=== PATIENT | female | born 1970 | race Caucasian/White ===

== ENCOUNTER 2018-06-05 06:47 | Emergency (ER) | payer MEDICAID ==
[~2018-06-05] VITALS: Ht 167.6 cm; Wt 90.7 kg
[2018-06-05 08:32] VITALS: BP 142/99
[2018-06-05] MEDS ORDERED: SODIUM CHLORIDE 0.9% 1,000 ML IVB ONE (08:42)
[2018-06-05] MEDS ORDERED: PANTOPRAZOLE 40 MG/10 ML VIAL IV ONE (08:45)
[2018-06-05 09:00] LABS: Urine Bacteria NONE SEEN /hpf (None Seen); Urine Blood 1+ /uL (Negative); Urine Mucus FEW (None Seen); Urine Specific Gravity 1.031 (1.001-1.035); Urine WBC 2 /hpf (0 - 5)
[2018-06-05 09:31] LABS: Basophils # (auto) 0.1 uL; Basophils % (auto) 1.2 % (0.0-2.0); Eosinophils # (auto) 0.1 uL; Eosinophils % (auto) 0.6 % (0.0-7.0); Hemoglobin 16.1 g/dL (12.2-16.2); Lymphocytes # (auto) 1.9 uL; Lymphocytes % (auto) 19.1 % (10.0-50.0); Mean Corpuscular Hemoglobin 32.5 pg (28.0-32.0); Mean Corpuscular Hgb Conc. 33.6 g/dL (32.0-36.0); Mean Corpuscular Volume 96.5 fL (80.0-100.0); Monocytes # (auto) 0.6 uL; Monocytes % (auto) 6.4 % (0.0-12.0); Neutrophils # (auto) 7.1 uL; Neutrophils % (auto) 72.7 % (37.0-80.0); Platelet Count (auto) 268 10^3/uL (140-450); Red Blood Cells 4.97 10^6/uL (4.0-5.20); Red Cell Distribution Width 14.2 % (11.8-14.3); White Blood Cell 9.8 10^3/uL (4.4-10.8)
[2018-06-05 10:06] LABS: Alanine Aminotransferase 39 U/L (13-56); Albumin 3.9 g/dL (3.4-5.0); Alkaline Phosphatase 82 U/L (45-117); Anion Gap 7 (5-15); Aspartate Aminotransferase 21 U/L (15-37); Bilirubin, Total 0.6 mg/dL (0.2-1.0); Blood Urea Nitrogen 16 mg/dL (7-18); Calcium 8.7 mg/dL (8.5-10.1); Carbon Dioxide 24 mmol/L (21-32); Chloride 103 mmol/L (98-107); GFR African American 87 mL/min; GFR Non-African American 72 mL/min; Glucose 104 mg/dL (74-106); Lipase 89 U/L (73-393); Potassium 4.1 mmol/L (3.5-5.1); Sodium 134 mmol/L (136-145); Total Protein 8.1 g/dL (6.4-8.2)
== END 2018-06-05 10:50 | disposition home or self-care (01) ==
LOC: ER 06:47
DX: N39.0 Urinary tract infection, site not specified (principal); E87.1 Hypo-osmolality and hyponatremia; E86.0 Dehydration; I10 Essential (primary) hypertension; F17.210 Nicotine dependence, cigarettes, uncomplicated
CPT/HCPCS: 36415; 80053; 80320; 81001; 83690; 84484; 85025; 93005; 94761; 96361; 96374; 99285; C9113; J7030

== ENCOUNTER 2018-08-17 09:32 | Emergency (ER) | payer MEDICAID ==
[~2018-08-17] VITALS: Ht 167.6 cm; Wt 90.7 kg
[2018-08-17 09:40] VITALS: BP 121/79
[2018-08-17] MEDS ORDERED: KETOROLAC TROMETH 60MG/2ML VIAL IM ONE (10:15)
[2018-08-17] MEDS ORDERED: cefTRIAXone SOD 1,000 MG VL IM ONE (10:15)
== END 2018-08-17 10:47 | disposition home or self-care (01) ==
LOC: ER 09:32
DX: H60.92 Unspecified otitis externa, left ear (principal); I10 Essential (primary) hypertension; F17.210 Nicotine dependence, cigarettes, uncomplicated
CPT/HCPCS: 96372; 99284; J0696; J1885

== ENCOUNTER 2018-08-18 09:07 | Emergency (ER) | payer MEDICAID ==
[~2018-08-18] VITALS: Ht 167.6 cm; Wt 90.7 kg
[2018-08-18 09:16] VITALS: BP 124/81
== END 2018-08-18 11:46 | disposition left against medical advice (07) ==
LOC: ER 09:07
DX: H92.03 Otalgia, bilateral (principal); Z53.21 Procedure and treatment not carried out due to patient leaving prior to being seen by health care provider